=== PATIENT | female | born 1980 | race Asian ===

== ENCOUNTER → 2017-07-01 | Emergency (ER) | payer SELFPAY ==
[~2017-07-01] VITALS: Ht 160 cm; Wt 56.2 kg
[~2017-07-01] MED LIST: Morphine Sulfate 4mg/ml Inj IM ONE; NKM; ROBAXIN-750750 MG PO; Tylenol #3 tab (300mg/30mg) ORAL ONE
[2017-07-01 11:27] VITALS: BP 114/70
[2017-07-01 12:42] VITALS: BP 114/70
--- NOTE | 2017-07-01 13:11 | Diagnostic Imaging Report ---
Indication: Pain Technique: 2 views of the sternum Comparison: none Findings: No sternal fracture demonstrated. No evidence of retrosternal hematoma Impression: Negative
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
== END | disposition home or self-care (01) ==
LOC: EMR 11:43
DX: S16.1XXA Strain of muscle, fascia and tendon at neck level, initial encounter (principal); S20.219A Contusion of unspecified front wall of thorax, initial encounter; V43.62XA Car passenger injured in collision with other type car in traffic accident, initial encounter; Y92.410 Unspecified street and highway as the place of occurrence of the external cause; J45.909 Unspecified asthma, uncomplicated
CPT/HCPCS: 71045; 71120; 96372; 99284; J2270